=== PATIENT | female | born 1970 | race Caucasian/White ===

== ENCOUNTER → 2016-04-26 | Outpatient (CLI) | payer OTHER ==
--- NOTE | 2016-04-26 17:11 | MA ---
Bilateral Screening Digital Mammograms With iCAD Clinical Indications: Routine screening mammograms. Technique: Standard digital cephalocaudal and mediolateral oblique projections were obtained. [facility] Comparison: 2014, 2013, 2012, 2011 Breast density: 4: >75%. Findings: Computer-aided detection was reviewed. No suspicious cluster of microcalcifications, new d ominant densities or architectural distortion. A few scattered microcalcifications of both breasts wi thout suspicious microcalcifications. Impression: 1. ACR BI-RADS 2: Benign. 2. No mammographic evidence of malignancy. Recommendation: 1. If physical exam is negative, recommend annual mammograms with next mammogram April 2017. 2. Dense mammographic pattern limits the sensitivity of mammography in this patient. If there is a cl inically palpable abnormality, recommend additional imaging with ultrasound, if clinically indicated. [facility] will send a result letter to the patient. Negative mammography should not preclude additional workup of a clinically suspicious finding. The patient's information is entered into a reminder system with a target due date for her next mammo gram. Cosign: Dr. Derek Benavidez
== END ==
LOC: CIMAGING 10:43
DX: Z12.31 Encounter for screening mammogram for malignant neoplasm of breast (principal)
CPT/HCPCS: G0202

== ENCOUNTER 2016-05-19 16:28 | Inpatient (IN) | payer OTHER ==
--- NOTE | 2016-05-19 16:43 | EDPHY ---
[id number] her complaining of intermittent abdominal pain for the last 24 hours. She initially noticed mild abdominal pain around 16:00 yesterday and initially thought it was gas. It worsened throughout the night and she says it "almost feels like contractions where my stomach gets really hard then releases." She had an outpatient CT today for her pain that showed a cecal volvulus and was referred to the ED. She denies vomiting or fever. Her last PO intake was an egg at 11:00 and a barium swallow for CT today. She has requested Dr. Cesar Avelar perform the surgery. REVIEW OF SYSTEMS: Aside from elements discussed in the HPI, a comprehensive 10-point review of systems was reviewed and is negative. PMH: Laparoscopic hysterectomy SOCIAL HISTORY: at bedside PHYSICAL EXAM: General:Patient is alert, in no acute distress. ENT:Eyes are normal to inspection. ENT inspection normal. Neck: Normal inspection. Full range of motion. Respiratory:No respiratory distress. Breath sounds normal bilaterally. Cardiovascular: Regular rate and rhythm. Strong peripheral pulses. Normal cap refill. Abdomen:The abdomen is tender to palpation along RUQ and mildly distended. Back: Normal to inspection. No tenderness to palpation. Skin: Normal color. No rash. Warm and dry. Extremities: Normal appearance. Full range of motion. Neuro: Oriented x3. Normal motor function. Normal sensory function. ED Course: (Outpatient) Study: CT of the Abdomen/Pelvis with contrast Indication: Pain Results: CT scan of the abdomen was obtained. The results of the study are 1. Cecal volvulus. STAT surgical consultation is recommended. 2. Malrotation. 3. Trace ascites. 4. Additional findings as above. The study was read by the radiologist, Dr. Trotter. I viewed the images myself on the PACS system. IV established. Labs drawn including CBC, CHEM. 0.5mg IV Dilaudid administered. Dr. Avelar, surgeon, is already aware of patient and plans to take her to surgery tonight. MDM: This patient presents abdominal pain and an outpatient CT showing cecal volvulus. She is hemodynamically stable and appropriate for surgery this evening. The patient requested consultation by Dr. Cesar Avelar herself, so I consulted Dr. Avelar and he will admit the patient. Apparently the patient's physician independently contacted the on-call surgeon, Dr. Williamson. I confirmed with the patient that she would prefer to be evaluated and treated by Dr. Avelar. General Time Seen by Provider: 05/19/16 16:31 Initial Vital Signs: Initial Vital Signs Temperature (C) 36.9 C 05/19/16 16:29 Heart Rate 85 05/19/16 16:29 Respiratory Rate 16 05/19/16 16:29 Blood Pressure 117/77 05/19/16 16:29 O2 Sat (%) 98 05/19/16 16:29 O2 Delivery Mode Room Air Allergies/Adverse Reactions: latex Allergy (Intermediate, Verified 05/19/16 16:32) Other-Enter Comments Home Medications: Medication Instructions Recorded NK [No Known Home Meds] 05/19/16 Departure - Departure Disposition: [facility] Inpatient Acute Clinical Impression: Cecal volvulus, S/P laparoscopic hysterectomy, H/O bilateral salpingectomy Condition: Fair Report Scribed for: Bashir Serna Report Scribed by: Miranda Leroy Date of Report: 05/19/16 Time of Report: 16:36 Physician Review and Approval Statement: Portions of this note were transcribed by an ED scribe. I personally performed the history, physical exam, and medical decision making; and confirm the accuracy of the information in the transcribed note.
[2016-05-19] MEDS ORDERED: HYDROCODONE/APAP 5/325 TAB PO PRN (16:52)
[2016-05-19] MEDS ORDERED: HYDROmorphONE/DILAUDID 1 MG/ML SYR IVP PRN (16:52)
[2016-05-19] MEDS ORDERED: ONDANSETRON 4 MG/2 ML VIAL IVP PRN (16:52)
[2016-05-19] MEDS ORDERED: ACETAMINOPHEN 325 MG TAB PO PRN (16:52)
[2016-05-19] MEDS ORDERED: cefOXitin SODIUM 2 GM in D5W 100 ML IV ONE (16:54)
[2016-05-19] MEDS ORDERED: D5W 1/2 NS W/ 20 KCl/L 1,000 ML IV SCH (17:00)
[2016-05-19] MEDS ORDERED: HYDROmorphONE/DILAUDID 2 MG/ML SYR IVP ONE (17:07)
[2016-05-19] MEDS ORDERED: ONDANSETRON 4 MG/2 ML VIAL ONE (17:13)
[2016-05-19] MEDS ORDERED: ONDANSETRON 4 MG/2 ML VIAL IVP ONE (17:16)
--- NOTE | 2016-05-19 17:55 | GHP ---
[f rep st] HISTORY AND PHYSICAL DATE OF ADMISSION: 05/19/2016 HISTORY OF PRESENT ILLNESS: The patient is a very pleasant, 45-year-old female, who developed abdomi nal pain yesterday that worsened and she eventually went to her primary care provider and had a CT sc an done, which demonstrated cecal volvulus. Presently in the emergency department she reports pain t hat comes in waves, currently right upper quadrant pain 4/10, but it can escalate to 9/10 before spas m and the patient feels better. She has no history of bowel issues. Her only surgery is a laparosco pic hysterectomy. She reports she is otherwise healthy. She denies cardiac or pulmonary issues. sukumar had a normal white blood cell count as an outpatient today. PAST MEDICAL HISTORY: None. PAST SURGICAL HISTORY: Laparoscopic hysterectomy. ALLERGIES: No known drug allergies. 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 She is accompanied by her in the emergenc y department. Nonsmoker, minimal alcohol use. She lives in [place]. REVIEW OF SYSTEMS: Negative 10-point review of systems. PHYSICAL EXAM: GENERAL: Patient is a very pleasant female, in no apparent distress, lying still and flat though. HEAD AND NECK: Normocephalic, atraumatic. CHEST: CTA bilaterally. HEART: Regular rhythm and rate. ABDOMEN: Mildly distended, moderately tender to palpation over the right lower romario drant and right upper quadrant. Negative rebound. EXTREMITIES: No lower extremity edema. Normal d orsalis pedis pulses to palpation. LABORATORY STUDIES: Normal white blood cell count. Normal creatinine today. RADIOLOGY: CT scan concerning for cecal volvulus. IMPRESSION: A 45-year-old female with abdominal pain, likely secondary to cecal volvulus. RECOMMENDATION: Laparoscopic cecopexy and possible cecectomy were discussed with the patient. Dr. Elena phelps will see the patient shortly. Risks discussed regarding the surgery while the patient was in e emergency department include conversion to open procedure, bleeding, abscess formation, need for os cesar. The patient has signed a consent for surgery. She will be kept n.p.o. I ordered cefoxitin 2 g superintendent transmission. The patient will most likely stay 1-2 nights in the hospital depending on the outcome of the surgery, obviously. /[id number]/MODL
[2016-05-19] MEDS ORDERED: MIDAZOLAM 2 MG/2 ML VIAL ONE (18:30)
[2016-05-19] MEDS ORDERED: fentaNYL 100 MCG/2 ML INJ ONE ×2 (18:40→19:39)
[2016-05-19] MEDS ORDERED: SUCCINYLCHOLINE CHLORIDE*ANESTHESIA ONLY*200 MG/10 ML SYR IVP ONE (18:41)
[2016-05-19] MEDS ORDERED: DEXAMETHASONE 4 MG/ML VIAL ONE (18:41)
--- NOTE | 2016-05-19 18:44 | SOAPPROG ---
SOAP Progress Note Assessment/Plan: Assessment: 45 FEMALE WITH CECAL VOLVULUS AND PAIN >24 HRS/ ADMIT FOR SURGERY RISKS AND OPTIONS FULLY DISCUSSED WITH LIKELY OPEN CONVERSION NKA/ NO MEDS/ PHX LAP SOPHIE/ POSSIBLE LATEX SENSITIVITY HEENT NONICTERIC/CHEST CLEAR/ COR RR/ ABD VERY DISTENDED, TYMPANITIC AND MILDLY TENDER Plan: SURGERY 05/19/16 18:41 Objective: Vital Signs Temp Pulse Resp BP Pulse Ox 37 C 72 18 110/74 95 05/19/16 17:56 05/19/16 17:56 05/19/16 17:56 05/19/16 17:56 05/19/16 17:56 ICD10 Worksheet Patient Problems: Problems Problem Status Diagnosed Cecal volvulus Acute H/O bilateral salpingectomy Acute S/P laparoscopic hysterectomy Acute
[2016-05-19] MEDS ORDERED: HEPARIN 1000 UNIT/1 ML MDV ONE (18:46)
[2016-05-19] MEDS ORDERED: BUPIVACAINE 0.5% 30 ML SDV ONE (18:46)
[2016-05-19] MEDS ORDERED: ceFAZolin 1 GM/5 ML SYR ONE (18:47)
[2016-05-19] MEDS ORDERED: LIDOCAINE 2% 5 ML SDV ONE (18:47)
[2016-05-19] MEDS ORDERED: OXYCODONE/APAP 5/325 TAB PO PRN (19:57)
[2016-05-19] MEDS ORDERED: KETOROLAC 30 MG/1 ML SDV IVP ONE (19:57)
--- NOTE | 2016-05-19 20:02 | POSTOPPROG ---
Post Op Note Date of Operation: 05/19/16 Surgeon: Pablito Avelar Anesthesiologist: BOB Anesthesia: GET(General Endotracheal) Pre-op Diagnosis: CECAL VOLVULUS Post-op Diagnosis: SAME WITH INTERNAL HERNIA Indication: PAIN Procedure: OPEN RT HEMICOLECTOMY AND LYSIS ADHESIONS Findings: COMPROMISED CECUM DISTENDED OVER 14CM WITH FIBROUS BAND CREATING INTERNAL H Inf/Abcess present in the surg proc area at time of surgery?: No Depth: Organ Space EBL: 50-100 Complications: 0 Specimen(s): RT COLON
[2016-05-19] MEDS ORDERED: MEPERIDINE 25 MG/ML SYR ONE (20:29)
[2016-05-19] MEDS: D5W 1/2 NS W/ 20 KCl/L 1,000 ML IV SCH (22:48)
[2016-05-19] MEDS: KETOROLAC 15 MG/1 ML SDV IVP SCH (23:10)
[2016-05-19] MEDS: cefOXitin SODIUM 1 GM in D5W 50 ML IV SCH ×3 (23:11→23:18)
[2016-05-20] MEDS: cefOXitin SODIUM 1 GM in D5W 50 ML IV SCH ×3 (06:00→17:47)
[2016-05-20] MEDS: KETOROLAC 15 MG/1 ML SDV IVP SCH ×4 (06:00→23:31)
--- NOTE | 2016-05-20 09:29 | SOAPPROG ---
SOAP Progress Note Assessment/Plan: Assessment/Plan - 45yo female POD#1 s/p R hemicolectomy for cecal volvulus - VSS, HDS - Pain controlled - Abdomen is soft, nondistended, incision covered with clean dressing. - Tolerating ice chips, will await more robust bowel function before advancing. - OOBTC, ambulate PRN 05/20/16 09:28 Subjective: Doing well, pain controlled, tolerating ice chips Objective: Vital Signs Temp Pulse Resp BP Pulse Ox 37.4 C 75 16 103/54 L 93 05/20/16 07:51 05/20/16 07:51 05/20/16 07:51 05/20/16 07:51 05/20/16 07:51 05/19/16 05/20/16 05/21/16 05:59 05:59 05:59 Intake Total 1350 953 Output Total 35 300 Balance 5475 517 ICD10 Worksheet Patient Problems: Problems Problem Status Diagnosed Cecal volvulus Acute H/O bilateral salpingectomy Acute S/P laparoscopic hysterectomy Acute
[2016-05-21] MEDS: KETOROLAC 15 MG/1 ML SDV IVP SCH ×4 (05:16→23:08)
[2016-05-21] MEDS: D5W 1/2 NS W/ 20 KCl/L 1,000 ML IV SCH (07:16)
--- NOTE | 2016-05-21 14:04 | SOAPPROG ---
SOAP Progress Note Assessment/Plan: Assessment/Plan - 45yo female POD#2 s/p R hemicolectomy for cecal volvulus - Looks great, passing flatus, tolerating clears without issue. Abdomen soft, incision clean and covered with steris. - advance diet to fulls, encourage PO pain meds. - 05/20/16 09:28 05/21/16 14:03 Subjective: passing flatus, some blood in stool. Objective: Vital Signs Temp Pulse Resp BP Pulse Ox 36.8 C 80 16 110/59 L 100 05/21/16 11:36 05/21/16 11:36 05/21/16 11:36 05/21/16 11:36 05/21/16 11:36 05/20/16 05/21/16 05/22/16 05:59 05:59 05:59 Intake Total 1350 3676 Output Total 35 1999 Balance 9040 2434 ICD10 Worksheet Patient Problems: Problems Problem Status Diagnosed Cecal volvulus Acute H/O bilateral salpingectomy Acute S/P laparoscopic hysterectomy Acute
[2016-05-21 23:56] VITALS: RESP 18
[2016-05-22] MEDS: KETOROLAC 15 MG/1 ML SDV IVP SCH ×2 (05:24→12:11)
[2016-05-22 08:18] VITALS: TEMP 98.2
--- NOTE | 2016-05-22 09:30 | SOAPPROG ---
SOAP Progress Note Assessment/Plan: Assessment: 45yo female s/p r hemicolectomy tolerating clears, having some bloody stools, ambulating well. PE Appears well abdomen midline incision clean, dry, soft to palpation Plan: possible d/c later today if bloody stools decrease regular diet 05/22/16 09:25 Objective: Vital Signs Temp Pulse Resp BP Pulse Ox 36.8 C 66 18 115/65 97 05/22/16 08:00 05/22/16 08:00 05/22/16 08:00 05/22/16 08:00 05/22/16 08:00 05/21/16 05/22/16 05/23/16 05:59 05:59 05:59 Intake Total 367 Output Total 1999 2199 Balance 1676 -2200 ICD10 Worksheet Patient Problems: Problems Problem Status Diagnosed Cecal volvulus Acute H/O bilateral salpingectomy Acute S/P laparoscopic hysterectomy Acute
--- NOTE | 2016-05-22 14:08 | GOP ---
[f rep st] OPERATIVE REPORT DATE OF OPERATION: 05/19/2016 SURGEON: Pablito Avelar MD AUTOMOTIVE SERVICE PROFESSIONAL: None. ANESTHESIOLOGIST: Dr. White PREOPERATIVE DIAGNOSIS: Cecal volvulus. POSTOPERATIVE DIAGNOSIS: Cecal volvulus with internal hernia. PROCEDURE PERFORMED: Open right hemicolectomy and adhesiolysis. FINDINGS: Patient was found to have a compromised cecum, which was distended over 14 cm with a fibro us band creating an internal hernia. DESCRIPTION OF PROCEDURE: Patient was taken to the operating room, where she received satisfactory g eneral endotracheal anesthesia by Dr. White. She was placed in the supine position, prepped an d draped in the usual sterile fashion. Abdomen was examined. Laparoscopy was considered, but the cecum was so distended, filling up the ent alda abdomen, it was not felt laparoscopy would be beneficial. A periumbilical incision was made and carried through the linea alba. The abdomen was entered. The cecum was massively distended and required enlargement of the incision to be able to deliver the cecu m out of the wound. The cecum was twisted on itself with an internal hernia band. This was lysed. It was a quite thick band, measuring over 4-5 mm. The cecum was then freed up however, the taeniae were splayed out and distended, and it was elected, felt best to remove that floppy portion of the colon. The mesocolon was divided with the Harmonic Sc alpel, and then a [id number] anastomosis was made between the terminal ileum and the transverse col on with a NORAH stapler and a cross application of the stapler to close the insertion site. The right colon, including the appendix and terminal ileum, was removed. The mesentery was closed with 3-0 Vicryl and the suture line was reinforced with a running 3-0 Vicryl suture. The wound was irrigated. Hemostasis was assured. The colon was returned to the abdomen. The Eloy wound retractor was removed, and the wound was closed in layers using a running #1 PDS sut ure for the linea alba and 3-0 Vicryl for the subcu, 3-0 Monoderm and Quill suture for the skin. The wound was infiltrated with 0.5% Marcaine. Tolerated the procedure well. Blood loss less than 100 cc. No complications. /[id number]/MODL
[2016-05-22 15:49] VITALS: BP 128/56; PULSE 71; O2SAT 95
--- NOTE | 2016-05-25 13:46 | GDS ---
[f rep st] DISCHARGE SUMMARY REASON FOR ADMISSION: Cecal volvulus. HOSPITAL COURSE: Patient is a pleasant, fit, 45-year-old female, who came to the emergency [facility] complaining of abdominal pain. She underwent surgery with Dr. Avelar on 05/19/2016, open right hailey colectomy and lysis of adhesions. Findings during surgery consisted of compromised cecum, right colo n distended over 14 cm with fibrous band creating internal hernia. Pathology from the surgery was co nsistent with the diagnosis of volvulus. The patient's hospital course was unremarkable after the surgery. She was tolerating a regular diet and did not need pain medication prior to discharge. She was instructed to follow up with our office in approximately 7-10 days. No heavy lifting for 6 weeks. /[id number]/MODL
== END 2016-05-22 17:36 | disposition home or self-care (01) | DRG 331 ==
LOC: F2W 20:56 → F3E 05-20 23:15
PROVIDERS: ADMIT Surgery; ATTEND Surgery
PROC: 0DBF0ZZ Excision of Right Large Intestine, Open Approach (ICD-10-PCS; principal; 2016-05-19 18:30)
DX: K56.2 Volvulus (principal); K46.9 Unspecified abdominal hernia without obstruction or gangrene
CPT/HCPCS: J0330; J0694; J0697; J1100; J1170; J1885; J2250; J2405; J3010

== ENCOUNTER → 2016-05-19 | Outpatient (CLI) | payer OTHER ==
[~2016-05-19] MED LIST: IOPAMIDOL (ISOVUE-300) 100 ML BTL IV ONE
--- NOTE | 2016-05-19 16:01 | CT ---
CT Abdomen and Pelvis With Contrast History: Abdominal pain, history of appendectomy. Comparison: None available. Technique: Axial contrast-enhanced images were obtained through the abdomen and pelvis following the uneventful administration of oral and 85 mL Isovue-300 intravenous contrast. Dose reduction techniqu es were utilized. Creatinine is 0.7. Findings: Abdomen: The lung bases are clear. Heart size is normal. The liver, gallbladder, spleen, pancreas, adrenals, and kidneys are normal. The cecum is distended, measuring 9 cm, with minimal wall thickening despite distention. There is tor nam distally, with the cecal outlet positioned in the central pelvis, with decompressed transverse c olon extending distally (coronal series 601 images 18 through 23 e.g.). Colon distal to the cecal vol vulus is decompressed. The small bowel is normal caliber. Small bowel malrotation is noted with the d uodenum in the right upper quadrant. There is trace free fluid. There is no free air. Enteric contras t extends into the cecum. The aorta is normal caliber . The IVC, hepatic, portal, splenic, and superior mesenteric veins are pa tent. No pathologically enlarged lymph nodes are identified. Moderate degenerative change is present at L5-S1. Pelvis: The bladder is normal. There is a small amount of free fluid. No aggressive osseous lesions are identified. Impression: 1. Cecal volvulus. STAT surgical consultation is recommended. 2. Malrotation. 3. Trace ascites. 4. Additional findings as above. Findings discussed with Megan Esquivel today at 1547 hours.
== END ==
LOC: FIMAGING 12:44
PROVIDERS: ATTEND Physician Assistant
DX: K31.5 Obstruction of duodenum (principal)
CPT/HCPCS: Q9967

== ENCOUNTER 2016-11-14 11:25 | Observation (INO) | payer OTHER ==
[2016-11-14] MEDS ORDERED: ceFAZolin 2 GM/DEXTROSE 100 ML IV ONE (11:58)
[2016-11-14] MEDS ORDERED: LR 1,000 ML IV ONE (12:02)
[2016-11-14] MEDS ORDERED: LIDOCAINE 1% 2 ML INJ ID PRN (12:02)
--- NOTE | 2016-11-14 14:17 | PDHPUP ---
History & Physical Update H&P update statement: This history and physical update is based on an assessment of the patient which was completed after admission or registration (within 24 hours), but prior to the surgery/procedure. H&P update: H&P reviewed & patient examined, no change in patient's condition since H&P completed
[2016-11-14] MEDS ORDERED: BUPIVACAINE 0.5% 30 ML SDV ONE (14:33)
[2016-11-14] MEDS ORDERED: MIDAZOLAM 2 MG/2 ML VIAL IVP ONE (14:55)
--- NOTE | 2016-11-14 14:55 | PDANEPAE ---
ANE History of Present Illness 46 yo F with an incisional hernia here for repair ANE Past Medical History - Cardiovascular History Hx Hypertension: No Hx Arrhythmias: No Hx Chest Pain: No Hx Coronary Artery / Peripheral Vascular Disease: No Hx CHF / Valvular Disease: No Hx Palpitations: No - Pulmonary History Hx COPD: No Hx Asthma/Reactive Airway Disease: No Hx Recent Upper Respiratory Infection: No Hx Oxygen in Use at Home: No Hx Sleep Apnea: No Sleep Apnea Screening Result - Last Documented: Negative Pulmonary History Comment: URI-06/22/14 URI, resolving. - Neurologic History Hx Cerebrovascular Accident: No Hx Seizures: No Hx Dementia: No - Endocrine History Hx Diabetes: No - Renal History Hx Renal Disorders: No Renal History Comment: Stress incotinance - Liver History Hx Hepatic Disorders: No - Neurological & Psychiatric Hx Hx Neurological and Psychiatric Disorders: No - Cancer History Hx Cancer: No - Congenital Disorder History Hx Congenital Disorders: No - GI History Hx Gastrointestinal Disorders: Yes Gastrointestinal History Comment: right colectomy 04/2016 - Other Health History Other Health History: wears glasses/ contacts - Chronic Pain History Chronic Pain: No - Surgical History Prior Surgeries: 05/19/16 laparotomy and right colectomy with Valentino. 1987- wisdom teeth. hysterectomy 2014 ANE Review of Systems - Exercise capacity Exercise capacity: >=4 METS METS (RN): 4 METS ANE Patient History - Allergies Allergies/Adverse Reactions: latex Allergy (Intermediate, Verified 11/13/16 11:13) Other-Enter Comments - Home Medications Home medications: home medication list seen and reviewed Home Medications: Herbals/Supplements -Info Only 11/13/16 [Last Taken 11/12/16] - NPO status NPO Status: no food or drink >8 hours NPO Since - Liquids (Date): 11/13/16 NPO Since - Liquids (Time): 22:30 NPO Since - Solids (Date): 11/13/16 NPO Since - Solids (Time): 20:00 - Anes Hx Anes Hx: no prior problems - Smoking Hx Smoking Status: Never smoked - Alcohol Use Alcohol Use: Occasionally - Family Anes Hx Family Anes Hx: none Family Hx Anesthesia Complications: none ANE Labs/Vital Signs - Vital Signs Blood Pressure: 108/73 Heart Rate: 70 Respiratory Rate: 20 O2 Sat (%): 95 Height: 167.64 cm Weight: 58.967 kg ANE Physical Exam - Airway Neck exam: FROM Mallampati Score: Class 1 Mouth exam: normal dental/mouth exam - Pulmonary Pulmonary: no respiratory distress, clear to auscultation - Cardiovascular Cardiovascular: regular rate and rhythym, no murmur, rub, or gallop - ASA Status ASA Status: I ANE Anesthesia Plan Anesthesia Plan: general endotracheal anesthesia
[2016-11-14] MEDS ORDERED: fentaNYL 100 MCG/2 ML INJ ONE ×3 (15:00→16:52)
[2016-11-14] MEDS ORDERED: PROPOFOL 200 MG/20 ML VIAL ONE ×2 (15:00)
[2016-11-14] MEDS ORDERED: LIDOCAINE 2% 100 MG/5 ML SYR ONE (15:03)
[2016-11-14] MEDS ORDERED: ROCURONIUM 50 MG/5 ML VIAL ONE ×2 (15:03→15:50)
[2016-11-14] MEDS ORDERED: KETOROLAC 30 MG/1 ML SDV ONE (16:12)
[2016-11-14] MEDS ORDERED: SUGAMMADEX SODIUM 200 MG/2 ML VIAL IVP ONE (16:12)
[2016-11-14] MEDS: fentaNYL 100 MCG/2 ML INJ IVP PRN ×3 (16:55→18:05)
[2016-11-14] MEDS ORDERED: NALOXONE HCL 0.4 MG/ML INJ IVP PRN (16:59)
[2016-11-14] MEDS ORDERED: ONDANSETRON 4 MG/2 ML VIAL IVP PRN ×2 (16:59→19:02)
[2016-11-14] MEDS ORDERED: ACETAMINOPHEN 500 MG TAB PO PRN (16:59)
[2016-11-14] MEDS ORDERED: OXYCODONE/APAP 5/325 TAB PO PRN (16:59)
[2016-11-14] MEDS ORDERED: PROMETHAZINE HCL 25 MG/ML INJ IVP PRN (16:59)
[2016-11-14] MEDS ORDERED: HYDROmorphONE/DILAUDID 1 MG/ML SYR ONE ×2 (17:11→18:53)
[2016-11-14] MEDS: HYDROmorphONE/DILAUDID 1 MG/ML SYR IVP PRN ×4 (17:12→19:12)
[2016-11-14] MEDS ORDERED: ONDANSETRON DISINTEGRATING 4 MG TAB PO PRN (17:28)
[2016-11-14] MEDS ORDERED: HYDROCODONE/APAP 5/325 TAB ONE ×2 (17:33→18:16)
[2016-11-14] MEDS: HYDROCODONE/APAP 5/325 TAB PO PRN ×2 (17:39→18:17)
[2016-11-14] MEDS ORDERED: HYDROmorphONE/DILAUDID 1 MG/ML SYR IVP PRN (19:02)
[2016-11-14] MEDS ORDERED: HYDROCODONE/APAP 5/325 TAB PO PRN (19:02)
--- NOTE | 2016-11-14 19:04 | POSTOPPROG ---
Post Op Note Date of Operation: 11/14/16 Surgeon: Pablito Avelar Motorcycle Police Officer: etienne Love Anesthesiologist: Adams Bobby Anesthesia: GET(General Endotracheal) Pre-op Diagnosis: incisional VH Post-op Diagnosis: same Procedure: incisional ventral hernia repair with mesh Findings: 6 cm weak defect Inf/Abcess present in the surg proc area at time of surgery?: No EBL: 30cc Complications: none Drains: Michael Nielsen
--- NOTE | 2016-11-14 19:09 | POSTANESTH ---
Post Anesthetic Evaluation Cardiovascular Status: Normal, Stable, Similar to Pre-Op Cond Respiratory Status: Normal, Stable, Similar to Pre-op Cond. Level of Consciousness/Mental Status: Can Participate in Eval Pain Control: Adequate, Prn Tx Ordered Nausea/Vomiting Control: Adequate, Prn Tx Ordered Complications Possibly Related to Anesthesia: None Noted
[2016-11-14] MEDS ORDERED: ONDANSETRON 4 MG/2 ML VIAL ONE (19:39)
[2016-11-14 23:35] VITALS: RESP 16
[2016-11-14] MEDS: KETOROLAC 15 MG/1 ML SDV IVP SCH (23:49)
[2016-11-15] MEDS: KETOROLAC 15 MG/1 ML SDV IVP SCH ×2 (05:05→10:22)
[2016-11-15 05:50] LABS: HEMATOCRIT 35.6 % (38.0-47.0); HEMOGLOBIN 12.3 g/dL (12.6-16.3)
[2016-11-15 07:31] VITALS: BP 113/62; PULSE 73; TEMP 98.1; O2SAT 100
--- NOTE | 2016-11-15 09:23 | SOAPPROG ---
SOAP Progress Note Assessment/Plan: Assessment/Plan: 46 Y M s/p ventral hernia repair. POD#1. Doing well. D/c MISTI drain. D/c to home. S: less pain. feeling much better O: alert, nad ctab rrr abd soft, inc cdi drain scant serosanguinous 11/15/16 09:22 Objective: Vital Signs Temp Pulse Resp BP Pulse Ox 36.7 C 73 16 113/62 100 11/15/16 07:26 11/15/16 07:26 11/15/16 07:26 11/15/16 07:26 11/15/16 07:26 Laboratory Results 11/15/16 04:13 11/14/16 11/15/16 11/16/16 05:59 05:59 05:59 Intake Total 2450 Output Total 1195 605 Balance 1255 -605 ICD10 Worksheet Patient Problems: Problems Problem Status Onset Cecal volvulus Acute H/O bilateral salpingectomy Acute S/P laparoscopic hysterectomy Acute
[2016-11-16] MEDS ORDERED: ENOXAPARIN 40 MG/0.4 ML SYR SC SCH (09:00)
== END 2016-11-15 10:51 | disposition home or self-care (01) ==
LOC: FSGY 11:25 → F3E 19:01
PROVIDERS: ADMIT Surgery; ATTEND Surgery
PROC: 0WUF0JZ Supplement Abdominal Wall with Synthetic Substitute, Open Approach (ICD-10-PCS; principal; 2016-11-14 13:45)
DX: K43.2 Incisional hernia without obstruction or gangrene (principal)
CPT/HCPCS: 49560; 49568; G0378; C1781; J0690; J1170; J1885; J2001; J2250; J2405; J2704; J3010

== ENCOUNTER → 2017-05-09 | Outpatient (CLI) | payer OTHER | LOC: CIMAGING 10:24 | PROVIDERS: ATTEND Obstetrics & Gynecology | DX: Z12.31 Encounter for screening mammogram for malignant neoplasm of breast (principal) ==

== ENCOUNTER → 2018-05-14 | Outpatient (CLI) | payer OTHER | LOC: CIMAGING 10:21 | PROVIDERS: ATTEND Obstetrics & Gynecology | DX: Z12.31 Encounter for screening mammogram for malignant neoplasm of breast (principal) ==